=== PATIENT | male | born 1960 | race Caucasian/White ===

== ENCOUNTER 2019-12-04 16:54 | Emergency (ER) | payer BC ==
[~2019-12-04] VITALS: Ht 167.6 cm; Wt 59.0 kg
[2019-12-04 16:59] VITALS: BP 154/90
--- NOTE | 2019-12-04 17:09 | NUR ---
JUAN HENDERSON AT BEDSIDE FOR EVAL.
--- NOTE | 2019-12-04 17:20 | NUR ---
FOLLOW UP MANAGER AT BEDSIDE FOR XRAY.
--- NOTE | 2019-12-04 17:46 | NUR ---
LORENA WRAP APPLIED AT R ANKLE.
--- NOTE | 2019-12-04 17:47 | NUR ---
Patient discharged to home in stable condition. Written and verbal after care instructions given. Patient verbalizes understanding of instruction.
== END 2019-12-04 17:48 | disposition home or self-care (01) ==
LOC: ER 16:59
DX: S93.691A Other sprain of right foot, initial encounter (principal); X50.1XXA Overexertion from prolonged static or awkward postures, initial encounter; Y93.89 Activity, other specified; Y92.89 Other specified places as the place of occurrence of the external cause; Y99.8 Other external cause status
CPT/HCPCS: 73630-TC